=== PATIENT | male | born 2000 | race Caucasian/White ===

== ENCOUNTER 2021-11-02 15:51 | Emergency (ER) | payer OTHER ==
[~2021-11-02] VITALS: Ht 165 cm; Wt 84.0 kg
--- NOTE | 2021-11-02 16:16 | ED Lower Extremity ---
General Chief Complaint: Lower Extremity Stated Complaint: R FOOT INJ Nursing Triage Note: PT TO [facility] PER W/C PT STATES ROLLED R FOOT WHEN STEPPING OFF STEP WEDNESDAY. FOOT SWOLLEN AND PAINFUL. RATES PAIN 11/09 Source: patient Exam Limitations: no limitations History of Present Illness Date Seen by Provider: Nov 02, 2021 Time Seen by Provider: 16:14 Initial Comments Patient is a 21-year-old male who presents ED with right ankle and foot pain. Patient states he was stepping off a skid steer on Wednesday when he stepped off the porch. States he rolled his ankle inwards. Had immediate pain was not able to bear weight. Went to the clinic on Wednesday when the injury occurred had a negative x-ray. Continued pain with swelling. Has been using crutches. Has been using ice past and ice and elevate in his foot. Currently taken Tylenol. Patient is concerned that the pain is getting worse. Patient denies fever, chills, calf pain, headache, dizziness, chest pain, shortness of breath Allergies and Home Medications Patient Home Medication List Home Medication List Reviewed: Yes Review of Systems Constitutional: No chills, No diaphoresis, No malaise EENTM: No blurred vision, No double vision Respiratory: No cough, No dyspnea on exertion Cardiovascular: No chest pain Gastrointestinal: No abdominal pain, No diarrhea, No nausea, No vomiting Genitourinary: No decreased output, No discharge Musculoskeletal: No back pain; joint pain, joint swelling, muscle pain, muscle stiffness Skin: No change in color, No change in hair/nails All Other Systems Reviewed Negative Unless Noted: Yes Past Mfawirk-Gnotuz-Zdeqfo Hx Patient Social History Tobacco Use?: No Substance use?: No Alcohol Use?: No Pt feels they are or have been: No Immunizations Up To Date First/Initial COVID19 Vaccinat: NO Second COVID19 Vaccination Mk: NO Physical Exam Vital Signs Vital Signs - First Documented 11/02/21 16:00 Temp 36.9 Pulse 106 Resp 18 B/P (MAP) 142/82 (102) Pulse Ox 98 Capillary Refill : Less Than 3 Seconds Height, Weight, BMI Height: '" Weight: lbs. oz. kg; 30.00 BMI Method: General Appearance: WD/WN, no apparent distress HEENT: PERRL/EOMI, normal ENT inspection, TMs normal, pharynx normal Neck: non-tender, full range of motion, supple, normal inspection Cardiovascular: regular rate, rhythm, no edema, no gallop, no JVD Respiratory: chest non-tender, lungs clear, normal breath sounds, no respiratory distress, no accessory muscle use Gastrointestinal: normal bowel sounds, non tender, soft, no organomegaly Back: normal inspection, no vertebral tenderness Ankles: right ankle pain, right ankle soft tissue tenderness, right ankle swelling Feet: right foot pain, right foot soft tissue tenderness, right foot swelling Neurologic/Psychiatric: 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 Appears to be ankle sprain. Does have significant swelling to the dorsum foot and lateral ankle. Recommend elevation, Omid wrap and crutches. Ice 3-4 times a day. Strongly recommend taking NSAIDs to help with the swelling. Orthopedic follow-up in 7 to 10 days for further evaluation. If any worsening symptoms return back to ED for further evaluation. Impression Primary Impression: Ankle sprain Disposition: 01 HOME, SELF-CARE Condition: Stable Departure-Patient Inst. Decision time for Depature: 16:52 Referrals: LIZZY SPARKS DO (PCP/Family) Primary Care Physician ROBIN GUTIERREZ MD Patient Instructions: Ankle Sprain ED Add. Discharge Instructions: Continue with elevation during the day, ice 3-4 times a day and anti- inflammatories to help with swelling. Orthopedic follow-up in 7 to 10 days for further evaluation. Continue with crutches All discharge instructions reviewed with patient and/or family. Voiced understanding. Work/School Note: Work Release Form Date Seen in the Emergency Department: Nov 02, 2021 Return to Work: Nov 06, 2021 MARY DE SOUZA Nov 02, 2021 16:16
--- NOTE | 2021-11-02 16:32 | Diagnostic Imaging Report ---
INDICATION: Pain running down the 5th metatarsal right foot, swelling and bruising.. TECHNIQUE: 3 views of the right foot CORRELATION STUDY: None FINDINGS: The osseous structures of the foot are intact. Joint spaces are maintained. Alignment anatomic. Mild soft tissue edema along the dorsal and lateral aspect of foot. IMPRESSION: 1. Negative for acute findings of the foot. Dictated by: Dictated on workstation # [id number]
--- NOTE | 2021-11-02 16:39 | Diagnostic Imaging Report ---
Indication: Right ankle pain and swelling. Comparison: None. Discussion: Three views of the right ankle were obtained. Diffuse soft tissue swelling noted. No fracture or dislocation. Ankle mortise is symmetric. Alignment is anatomic. Impression: Right ankle soft tissue swelling. No fracture. Dictated by: Dictated on workstation # [id number]
[2021-11-02 17:15] VITALS: BP 142/82
== END 2021-11-02 17:15 | disposition home or self-care (01) ==
LOC: EDUNIT# 15:51 → ER 15:54
DX: S93.401A Sprain of unspecified ligament of right ankle, initial encounter (principal); Z28.310 Unvaccinated for COVID-19; X50.1XXA Overexertion from prolonged static or awkward postures, initial encounter
CPT/HCPCS: 73610; 73630